=== PATIENT | male | born 1945 | race Caucasian/White ===

== ENCOUNTER 2018-05-18 11:12 | Outpatient (CLI) | payer MEDICARE, OTHER, SELFPAY | END 2018-05-18 11:13 | PROVIDERS: Visit Provider Internal Medicine | DX: I48.0 Paroxysmal atrial fibrillation (principal); Z79.01 Long term (current) use of anticoagulants | CPT/HCPCS: 36415; 85610 ==

== ENCOUNTER 2019-03-28 08:35 | Outpatient (CLI) | payer MEDICARE, OTHER, SELFPAY ==
[2019-03-28 09:41] LABS: INR 2.2 (0.9-1.1); Prothrombin Time 22.6 sec (9.3-11.0)
[2019-03-28 10:06] LABS: Anion Gap 5.8 mmol/L (3-11); BUN 16 mg/dL (7-18); CO2 30.2 mmol/L (21.0-32.0); CREATININE 0.98 mg/dL (0.70-1.30); Chloride 106 mmol/L (98-107); Glucose 99 mg/dL (70-100); Potassium 4.2 mmol/L (3.5-5.1); Sodium 142 mmol/L (136-145)
== END 2019-03-28 08:55 ==
PROVIDERS: PCP Pediatrics; Visit Provider Pediatrics
DX: I10 Essential (primary) hypertension (principal); I48.91 Unspecified atrial fibrillation; Z79.01 Long term (current) use of anticoagulants; Z51.81 Encounter for therapeutic drug level monitoring; R79.1 Abnormal coagulation profile
CPT/HCPCS: 36415; 80048; 85610

== ENCOUNTER 2019-04-18 18:02 | Emergency (ER) | payer MEDICARE, OTHER, SELFPAY ==
[2019-04-18 18:13] VITALS: BP 176/98; PULSE 67; RESP 16; TEMP 36.9; O2SAT 97
--- NOTE | 2019-04-18 18:31 | ED.GENADUL_ITS ---
Discharge Plan Disposition Patient Disposition: HOME Condition: Stable Discharge Details Chief Complaint: GenMedical Clinical Impression: Cellulitis of right leg Primary Care Provider: ASHLEY LEWIS ED Provider: Lawson Mobley Home Meds and New Rx's Prescriptions: New cephalexin 500 mg capsule 500 mg PO TID 5 Days Qty: 15 RF: 0 Continued atorvastatin [Lipitor] 20 MG tablet 20 mg PO DAILY RF: 0 metoprolol succinate 50 MG tablet extended release 24 hr 100 mg PO BID RF: 0 pantoprazole 40 MG tablet,delayed release (DR/EC) 40 mg PO DAILY RF: 0 warfarin [Coumadin] 5 MG tablet 5 mg PO DAILY RF: 0 quinapril-hydrochlorothiazide [Accuretic] 1 EACH tablet 1 tab PO BID RF: 0 potassium chloride 20 MEQ tablet extended release 20 mg PO DAILY RF: 0 multivitamin 1 EACH capsule 1 tab PO DAILY RF: 0 clonidine HCl 0.1 mg Tablet 0.1 mg PO PRN PRNRF: 0 Discharge Instructions Instructions: Cellulitis (ED) Additional Instructions: Cephalexin as prescribed for 3 days, 5 days if needed. As we discussed, please report for a INR check at this Wednesday if you have a longer course of antibiotics. The Mepilex may stay in place for 5 to 7 days and then be removed. Return to air dry of wound once Mepilex has been removed. Medical Decision Making 73-year-old male who suffered a small puncture wound to the right distal leg approximately 10 days ago. Now with mild surrounding erythema. He is anticoagulant on warfarin for atrial fibrillation. I do feel benefit from a brief course of Keflex and as he [place] from [place] of [place], I will order an INR to be obtained on Wednesday morning. Mepilex with border was placed and he will leave this on for 1 week. He is stable and appropriate for discharge. HPI General Mode of arrival: ambulatory . Date/Time Provider Initiated Documentation: 04/18/19 18:05 . Limitations to Documentation: no limitations . Information obtained by: patient . History of Present Illness 73 year old M presents to the emergency department with the chief complaint of Right lower extremity puncture wound, described as mild, Quality is described as constant, and is localized to the right and lower extremity. Patient reports no radiation. Patient started experiencing this day(s) and it has been constant. No relieving factors improve symptom(s), No exacerbating factors reported . Patient notes denies fever/chills. Patient did receive the following treatments prior to arrival, none Related Data Home Medications Medication Instructions Recorded Confirmed atorvastatin [Lipitor] 20 mg PO DAILY 04/29/17 04/18/19 metoprolol succinate 100 mg PO BID 04/29/17 04/18/19 multivitamin 1 tab PO DAILY 04/29/17 04/18/19 pantoprazole 40 mg PO DAILY 04/29/17 04/18/19 potassium chloride 20 mg PO DAILY 04/29/17 04/18/19 quinapril-hydrochlorothiazide 1 tab PO BID 04/29/17 04/18/19 [Accuretic] warfarin [Coumadin] 5 mg PO DAILY 04/29/17 04/18/19 cephalexin 500 mg PO TID 5 Days #15 cap 04/18/19 clonidine HCl 0.1 mg PO PRN PRN 04/18/19 04/18/19 Previous Rx's Medication Instructions Recorded cephalexin 500 mg PO TID 5 Days #15 cap 04/18/19 Allergies Allergy/AdvReac Type Severity Reaction Status Date / Time codeine AdvReac Mild break out Unverified 04/18/19 18:15 General Stated Complaint: GenMedical AGUSTIN: 4 Review of Systems Review of Systems 6 systems reviewed and otherwise negative [facility] Social History Do you feel safe in your relationship?: Yes Exam Narrative Exam Narrative: GEN: awake, alert, oriented 3. Pleasant, well groomed, interactive. HEAD: Normocephalic, atraumatic ENT: Mucous membranes moist, oropharynx unremarkable, External ear exam unrema rkable EYES: PERRL, EOMI CHEST/RESP: Nontender, clear to auscultation bilateral, no wheeze/rhonchi/rales CARDIOVASCULAR: Irregularly erect, no murmur, rub barry. 2+ Rad pulse bilateral ABDOMEN: Soft, nontender, no mass. +Bowel sounds EXT: Full ROM, right distal pretibial area with shallow ulceration with mild surrounding erythema. The ulceration measures approximately 1 cm diameter Neuro: Grossly normal neurologic exam, conversant, interactive. Psych: Speech fluent, thoughts congruent, affect normal Course Vital Signs Temperature 36.9 C 04/18/19 18:13 Pulse 67 04/18/19 18:13 Respiratory Rate 16 04/18/19 18:13 Blood Pressure 176/98 H 04/18/19 18:13 Pulse Oximetry 97 04/18/19 18:13 Temperature 36.9 C 04/18/19 18:13 Temperature Source Temporal Artery Scan 04/18/19 18:13 Pulse 67 04/18/19 18:13 Respiratory Rate 16 04/18/19 18:13 Blood Pressure 176/98 H 04/18/19 18:13 Pulse Oximetry 97 04/18/19 18:13 Oxygen Delivery Method Room Air 04/18/19 18:13 Oxygen Flow Rate 0 04/18/19 18:13 Pain Level 0 04/18/19 18:13
== END 2019-04-18 18:47 | disposition home or self-care (01) ==
PROVIDERS: Emergency Provider Emergency Medicine; PCP Pediatrics
DX: L03.115 Cellulitis of right lower limb (principal); L97.911 Non-pressure chronic ulcer of unspecified part of right lower leg limited to breakdown of skin; Z79.01 Long term (current) use of anticoagulants
CPT/HCPCS: 99283

== ENCOUNTER 2019-04-24 08:07 | Outpatient (CLI) | payer MEDICARE, OTHER, SELFPAY ==
[2019-04-24 08:35] LABS: INR 2.2 (0.9-1.1); Prothrombin Time 22.5 sec (9.3-11.0)
== END 2019-04-24 08:27 ==
PROVIDERS: PCP Pediatrics; Visit Provider Internal Medicine Cardiovascular Disease
DX: I48.91 Unspecified atrial fibrillation (principal); Z51.81 Encounter for therapeutic drug level monitoring; R79.1 Abnormal coagulation profile; Z79.01 Long term (current) use of anticoagulants
CPT/HCPCS: 36415; 85610

== ENCOUNTER 2019-06-01 09:51 | Outpatient (CLI) | payer MEDICARE, OTHER, SELFPAY ==
[2019-06-01 13:10] LABS: INR 2.4 (0.9-1.1); Prothrombin Time 23.8 sec (9.3-11.0)
== END 2019-06-01 10:11 ==
PROVIDERS: PCP Pediatrics; Visit Provider Nurse Practitioner Family
DX: I48.91 Unspecified atrial fibrillation (principal); Z79.01 Long term (current) use of anticoagulants
CPT/HCPCS: 36415; 85610

== ENCOUNTER 2021-03-03 03:01 | Outpatient (CLI) | payer MEDICARE, OTHER, SELFPAY ==
[2021-03-03 13:55] LABS: INR 2.4 (0.9-1.1); Prothrombin Time 23.4 sec (9.3-11.0)
== END 2021-03-03 03:02 | disposition home or self-care (01) ==
PROVIDERS: PCP Pediatrics; Visit Provider Internal Medicine Cardiovascular Disease
DX: I48.91 Unspecified atrial fibrillation (principal); Z79.01 Long term (current) use of anticoagulants
CPT/HCPCS: 36415; 85610

== ENCOUNTER 2021-04-09 03:15 | Outpatient (CLI) | payer MEDICARE, BC, SELFPAY ==
[2021-04-09 10:53] LABS: INR 2.1 (0.9-1.1); Prothrombin Time 20.8 sec (9.3-11.0)
== END 2021-04-09 03:16 | disposition home or self-care (01) ==
LOC: LBO 03:15
PROVIDERS: PCP Pediatrics; Visit Provider Internal Medicine Cardiovascular Disease
DX: I48.91 Unspecified atrial fibrillation (principal); Z79.01 Long term (current) use of anticoagulants; Z51.81 Encounter for therapeutic drug level monitoring
CPT/HCPCS: 36415; 85610

== ENCOUNTER 2022-03-25 16:31 | Outpatient (CLI) | payer MEDICARE, SELFPAY ==
[2022-03-25 15:02] LABS: INR 2.2 (0.9-1.1); Prothrombin Time 21.2 sec (9.3-11.0)
== END 2022-03-25 16:32 | disposition home or self-care (01) ==
LOC: LBO 16:33
PROVIDERS: PCP Pediatrics; Visit Provider Internal Medicine Cardiovascular Disease
DX: I48.91 Unspecified atrial fibrillation (principal); R79.1 Abnormal coagulation profile; Z79.01 Long term (current) use of anticoagulants
CPT/HCPCS: 36415; 85610

== ENCOUNTER 2022-04-30 15:16 | Outpatient (CLI) | payer MEDICARE, SELFPAY ==
[2022-04-30 15:58] LABS: INR 2.4 (0.9-1.1); Prothrombin Time 22.7 sec (9.3-11.0)
== END 2022-04-30 15:17 | disposition home or self-care (01) ==
LOC: LBO 15:17
PROVIDERS: PCP Pediatrics; Visit Provider Internal Medicine Cardiovascular Disease
DX: I48.91 Unspecified atrial fibrillation (principal); Z79.01 Long term (current) use of anticoagulants; Z51.81 Encounter for therapeutic drug level monitoring; R79.1 Abnormal coagulation profile
CPT/HCPCS: 36415; 85610

== ENCOUNTER 2023-03-15 14:47 | Outpatient (CLI) | payer MEDICARE, SELFPAY ==
[2023-03-15 14:21] LABS: Prothrombin Time 20.1 sec (9.3-11.0)
== END 2023-03-15 14:48 | disposition home or self-care (01) ==
LOC: LBO 14:48
PROVIDERS: PCP Pediatrics; Visit Provider Internal Medicine Cardiovascular Disease
DX: I48.91 Unspecified atrial fibrillation (principal); I26.99 Other pulmonary embolism without acute cor pulmonale; I80.8 Phlebitis and thrombophlebitis of other sites; I66.9 Occlusion and stenosis of unspecified cerebral artery; Z95.5 Presence of coronary angioplasty implant and graft; Z51.81 Encounter for therapeutic drug level monitoring; R79.1 Abnormal coagulation profile; Z79.01 Long term (current) use of anticoagulants; I80.209 Phlebitis and thrombophlebitis of unspecified deep vessels of unspecified lower extremity
CPT/HCPCS: 36415; 85610

== ENCOUNTER 2023-04-13 13:02 | Outpatient (CLI) | payer MEDICARE, SELFPAY ==
[2023-04-13 11:37] LABS: INR 2.3 (0.9-1.1); Prothrombin Time 23.7 sec (9.3-11.0)
== END 2023-04-13 13:03 | disposition home or self-care (01) ==
LOC: LBO 13:05
PROVIDERS: PCP Pediatrics; Visit Provider Internal Medicine Cardiovascular Disease
DX: I48.91 Unspecified atrial fibrillation (principal)
CPT/HCPCS: 36415; 85610

== ENCOUNTER 2024-03-06 13:39 | Outpatient (CLI) | payer MEDICARE, SELFPAY ==
[2024-03-06 14:01] LABS: INR 2.8 (0.9-1.1); Prothrombin Time 25.6 sec (9.1-11.1)
== END 2024-03-06 13:40 | disposition home or self-care (01) ==
LOC: LBO 13:39
PROVIDERS: PCP Pediatrics; Visit Provider Internal Medicine Cardiovascular Disease
DX: I48.91 Unspecified atrial fibrillation (principal)
CPT/HCPCS: 36415; 85610

== ENCOUNTER 2024-04-03 15:48 | Outpatient (CLI) | payer MEDICARE, SELFPAY ==
[2024-04-03 16:01] LABS: INR 2.6 (0.9-1.1); Prothrombin Time 23.7 sec (9.1-11.1)
== END 2024-04-03 15:49 | disposition home or self-care (01) ==
LOC: LBO 15:49
PROVIDERS: PCP Pediatrics; Visit Provider Internal Medicine Cardiovascular Disease
DX: Z51.81 Encounter for therapeutic drug level monitoring (principal); I48.91 Unspecified atrial fibrillation; I26.99 Other pulmonary embolism without acute cor pulmonale; I80.8 Phlebitis and thrombophlebitis of other sites; I66.9 Occlusion and stenosis of unspecified cerebral artery; Z95.5 Presence of coronary angioplasty implant and graft; R79.1 Abnormal coagulation profile; Z79.01 Long term (current) use of anticoagulants
CPT/HCPCS: 36415; 85610

== ENCOUNTER 2024-04-20 14:52 | Outpatient (CLI) | payer MEDICARE, SELFPAY ==
[2024-04-20 14:09] LABS: INR 2.9 (0.9-1.1); Prothrombin Time 26.9 sec (9.1-11.1)
== END 2024-04-20 14:53 | disposition home or self-care (01) ==
LOC: LBO 14:54
PROVIDERS: PCP Pediatrics; Visit Provider Internal Medicine Cardiovascular Disease
DX: Z79.01 Long term (current) use of anticoagulants (principal)
CPT/HCPCS: 36415; 85610

== ENCOUNTER 2025-03-27 11:50 | Outpatient (CLI) | payer MEDICARE, SELFPAY ==
[2025-03-27 13:00] LABS: INR 3.0 (0.9-1.1); Prothrombin Time 28.0 sec (9.1-11.1)
== END 2025-03-27 11:51 | disposition home or self-care (01) ==
PROVIDERS: PCP Pediatrics; Visit Provider Internal Medicine Cardiovascular Disease
DX: Z51.81 Encounter for therapeutic drug level monitoring (principal); R79.1 Abnormal coagulation profile; Z79.01 Long term (current) use of anticoagulants
CPT/HCPCS: 36415; 85610

== ENCOUNTER 2025-05-01 16:00 | Outpatient (CLI) | payer MEDICARE, SELFPAY ==
[2025-05-01 15:00] LABS: INR 2.9 (0.9-1.1); Prothrombin Time 26.9 sec (9.1-11.1)
== END 2025-05-01 16:01 | disposition home or self-care (01) ==
LOC: LBO 16:00
PROVIDERS: PCP Pediatrics; Visit Provider Internal Medicine Cardiovascular Disease
DX: Z79.01 Long term (current) use of anticoagulants (principal); Z51.81 Encounter for therapeutic drug level monitoring; R79.1 Abnormal coagulation profile
CPT/HCPCS: 36415; 85610